=== PATIENT | male | born 1955 | race Hispanic/Latino ===

== ENCOUNTER 2020-02-07 07:42 | Day surgery (SDC) | payer MEDICARE, OTHER ==
[2020-02-01 13:00] LABS: BASOPHILS % (AUTO) 0.5 % (0.0-5.0); EOSINOPHILS % (AUTO) 2.4 % (0.0-8.0); HEMATOCRIT 42.8 % (42-54); LYMPHOCYTES % (AUTO) 16.3 % (21.0-51.0); MEAN CORPUSCULAR HEMOGLOBIN 30.5 pg (27.0-33.0); MEAN CORPUSCULAR HGB CONC 32.9 g/dL (32.0-36.0); MEAN CORPUSCULAR VOLUME 92.6 fL (79-99); MONOCYTES % (AUTO) 8.1 % (3.0-13.0); NEUTROPHILS % (AUTO) 72.3 % (40.0-77.0); PLATELET COUNT (AUTO) 320 K/uL (130-400); RED BLOOD CELL COUNT(AUTO) 4.62 MIL/uL (4.50-6.20); RED CELL DISTRIBUTION WIDTH 12.6 % (11.0-15.5)
[2020-02-01 13:09] LABS: CREATININE 1.1 mg/dL (0.5-1.5); POTASSIUM 4.4 mmol/L (3.5-5.1)
[2020-02-01 13:13] LABS: INR 0.93 (0.85-1.15); PARTIAL THROMBOPLASTIN TIME 27.3 SEC (26.3-35.5); PROTHROMBIN TIME 10.1 SEC (9.6-11.6)
[2020-02-01 13:36] LABS: APPEARANCE,URINE Clear (CLEAR); BILIRUBIN,URINE Negative (NEGATIVE); COLOR,URINE Yellow (YELLOW); GLUCOSE, URINE (UA) Negative (NEGATIVE); KETONES,URINE Negative (NEGATIVE); LEUKOCYTE ESTERASE ,URINE Moderate (NEGATIVE); NITRATE,URINE Negative (NEGATIVE); OCCULT BLOOD,URINE Trace (NEGATIVE); PROTEIN,URINE Negative (NEGATIVE)
[2020-02-01 13:42] LABS: BACTERIA,URINE Moderate /HPF (None Seen); SQUAMOUS EPITHELIAL CELL,UR Rare /HPF (0-2)
[2020-02-01 13:43] LABS: MUCUS,URINE Rare LPF (None Seen)
--- NOTE | 2020-02-06 14:38 | NUR ---
ua abnormal ua reported to DR. grey , no further orders given. Patient on PO levaquin at home.
[2020-02-07] VITALS (17 sets, daily range): BP systolic 131–155; BP diastolic 78–98
[~2020-02-07] VITALS: Ht 168.9 cm; Wt 78.7 kg
[~2020-02-07 07:42] MED LIST: FINA5TAB41 PO; LEVO500T2 PO; TAMS-1 PO
[2020-02-07] MEDS ORDERED: LACTATED RINGERS 1000ML 1,000 ML IV ONE (07:50)
[2020-02-07] MEDS ORDERED: CEFTRIAXONE SODIUM 1 GM IVP ONE (08:00)
[2020-02-07] MEDS: GENTAMICIN SULFATE 390 MG in SODIUM CHLORIDE 0.9% 100 ML IV PRN ×2 (08:40→08:42)
[2020-02-07] MEDS ORDERED: PROPOFOL 10 MG/ML 20ML VIAL IV ONE (10:19)
[2020-02-07] MEDS ORDERED: SUCCINYLCHOLINE 200MG/10ML SYR ONE (10:19)
[2020-02-07] MEDS ORDERED: FENTANYL CITRATE PF 50 MCG/1 ML 2ML VIAL ONE (10:19)
[2020-02-07] MEDS ORDERED: ROCURONIUM 10MG/1ML SYR 10 MG/ML ML ONE (10:19)
[2020-02-07] MEDS ORDERED: LIDOCAINE PF 2% 5ML ABBOJECT ONE (10:19)
[2020-02-07] MEDS ORDERED: GLYCOPYRROLATE 1 MG/5 ML SYRINGE ONE (11:43)
[2020-02-07] MEDS ORDERED: NEOSTIGMINE 5MG/5ML SYR IV ONE (11:43)
[2020-02-07] MEDS ORDERED: MEPERIDINE-PF 25 MG/ML SYG ONE (12:35)
[2020-02-07] MEDS ORDERED: HYDROCODONE/ACETAMINOPHEN 5/325 MG TAB ONE (13:29)
[2020-02-07] MEDS ORDERED: HYDROCODONE/ACETAMINOPHEN 5/325 MG TAB PO PRN (14:15)
[2020-02-07] MEDS ORDERED: BACITRACIN 28.4 GM OINT TP SCH (21:00)
== END 2020-02-07 14:05 | disposition home or self-care (01) ==
LOC: DAH 07:42
PROVIDERS: ATTEND Urology
DX: N40.1 Benign prostatic hyperplasia with lower urinary tract symptoms (principal); R33.8 Other retention of urine; N13.8 Other obstructive and reflux uropathy; N13.30 Unspecified hydronephrosis; I10 Essential (primary) hypertension; Z79.01 Long term (current) use of anticoagulants; Z11.59 Encounter for screening for other viral diseases; Z79.899 Other long term (current) drug therapy; Z98.890 Other specified postprocedural states
CPT/HCPCS: 36415; 52648; 71045; 80048; 81001; 85025; 85610; 85730; 87077; 87088; 87186; 93005; A4215; A4221; A4222; A4223; A4354; A4358; A4452; A4600; A4663; A5113; A6260; C1758; C9803; J0330; J0696; J2001; J2175; J2704; J2710; J3010; J3490; J7030 ×2; J7120; U0003